=== PATIENT | female | born 1940 | race Caucasian/White ===

== ENCOUNTER 2020-08-14 10:06 | Outpatient (CLI) | payer MEDICARE, OTHER, SELFPAY ==
[2020-08-14 10:35] LABS: Basophils Percent Auto 0.7 % (0.2-1.2); Eosinophils Absolute Auto 0.2 K/mm3 (0-0.3); Eosinophils Percent Auto 3.5 % (0-4.4); Hematocrit 36.2 % (37.0-47.0); Lymphocytes Absolute Auto 1.53 K/mm3 (0.9-3.2); Lymphocytes Percent Auto 36.1 % (18.3-44.2); Mean Corpuscular HGB Conc 33.1 g/dl (32-36); Mean Corpuscular Hemoglobin 30.4 pg (26-34); Mean Corpuscular Volume 91.6 fl (80-100); Mean Platelet Volume 8.5 fl (7.4-10.4); Monocytes Absolute Auto 0.4 K/mm3 (0.1-0.6); Monocytes Percent Auto 8.7 % (2.6-8.5); Neutrophils Absolute Auto 2.2 K/mm3 (1.3-6.7); Platelet Count Result 160 k/mm3 (150-375); Red Blood Count 3.95 M/mm3 (4.2-5.4); Red Cell Distribution Width 12.3 % (11.5-14.5); White Blood Count 4.2 K/mm3 (4.5-10.0)
[2020-08-14 10:48] LABS: Albumin Level 4.4 g/dL (3.5-5.1); Alkaline Phosphatase 105 U/L (38-126); Anion Gap 5 mmol/L (8-16); Aspartate Amino Transferase 30 U/L (14-36); Bilirubin,Total 0.4 mg/dL (0.2-1.3); Blood Urea Nitrogen 17 mg/dL (7-17); Calcium 9.4 mg/dL (8.4-10.2); Carbon Dioxide 29 mmol/L (22-30); Chloride 105 mmol/L (98-107); Cholesterol 183 mg/dL (0-200); Estimated Glomerular Filt Rate > 60; Glucose 96 mg/dL (65-105); HDL Direct 50 mg/dL; Potassium 4.4 mmol/L (3.4-5.0); Sodium 139 mmol/L (137-145); Triglycerides 101 mg/dL (<150)
[2020-08-14 10:59] LABS: LDL Cholesterol Direct 89 mg/dL
[2020-08-14 11:17] LABS: Thyroid Stimulating Hormone 0.994 uIU/mL (0.465-4.680)
[2020-08-14 11:23] LABS: Alanine Aminotransferase < 4 U/L (4-35)
[2020-08-17 09:16] LABS: Vitamin D 1,25 (OH)2 Total 36 pg/mL (18-72); Vitamin D2 1,25 (OH)2 36 pg/mL; Vitamin D3 1,25 (OH)2 <8 pg/mL
== END 2020-08-14 10:07 | disposition home or self-care (01) ==
PROVIDERS: PCP Family Medicine; Visit Provider Family Medicine
DX: E55.9 Vitamin D deficiency, unspecified (principal); I10 Essential (primary) hypertension; E78.2 Mixed hyperlipidemia; E03.9 Hypothyroidism, unspecified
CPT/HCPCS: 36415; 80053; 80061; 82652; 84443; 85025

== ENCOUNTER 2020-08-21 14:03 | Outpatient (CLI) | payer MEDICARE, OTHER, SELFPAY | END 2020-08-21 14:04 | disposition home or self-care (01) | LOC: ANHAUDIO 14:05 | PROVIDERS: PCP Family Medicine; Visit Provider Family Medicine | DX: H93.19 Tinnitus, unspecified ear (principal); H90.3 Sensorineural hearing loss, bilateral | CPT/HCPCS: 92557; 92567 ==

== ENCOUNTER 2021-08-31 09:35 | Outpatient (CLI) | payer MEDICARE, OTHER, SELFPAY ==
--- NOTE | ~2021-08-31 | CT_ITS ---
EXAMINATION: CT brain wo con DATE: 08/31/2021 09:59 INDICATION: Tremor, unspecified. TECHNIQUE: Computed tomography (CT) of the head was performed without intravenous contrast. The mA wa s adjusted according to patient size. Iterative reconstruction technique was employed. The dose-lengt h product was 605.33 mGy-cm. COMPARISON: Brain MRI 12/12/2014 FINDINGS: There are scattered areas of low attenuation in the cerebral white matter, which is within normal limits for the patient's age. There is no intracranial hemorrhage, acute infarction, or abnorm al intracranial mass lesion. The ventricles are normal in size. There is mild mucosal thickening in t he paranasal sinuses. The mastoid air cells are normal. The orbits are normal. IMPRESSION: 1. Normal aging brain. Reviewed, dictated and finalized at location A. IMPRESSION: 1. Normal aging brain.
== END 2021-08-31 09:36 | disposition home or self-care (01) ==
PROVIDERS: PCP Family Medicine; Visit Provider Nurse Practitioner Gerontology
DX: R25.1 Tremor, unspecified (principal)
CPT/HCPCS: 70450

== ENCOUNTER 2021-12-29 07:48 | Outpatient (CLI) | payer MEDICARE, OTHER, SELFPAY ==
--- NOTE | ~2021-12-29 | MM_ITS ---
EXAMINATION: MM screening gisela BI w dorothy HISTORY: Screening mammogram, family history of breast cancer in her mother. TECHNIQUE: Craniocaudal and mediolateral oblique 3-D tomosynthesis images were obtained and synthetic 2-D images were generated. CAD analysis was submitted and interpreted. COMPARISON: 11/01/2014 BREAST PARENCHYMAL COMPOSITION: There are scattered areas of fibroglandular density. FINDINGS: There is no suspicious mass, calcification, or architectural distortion to suggest malignan cy in either breast. There has been no suspicious interval change. IMPRESSION: 1. No mammographic evidence of malignancy. 2. Recommend routine screening mammography while the patient remains in good health. BI-RADS Category 1: Negative Reviewed, dictated and finalized at location A. IMPRESSION: 1. No mammographic evidence of malignancy. 2. Recommend routine screening mammography while the patient remains in good he alth. BI-RADS Category 1: Negative
[2021-12-29 09:46] LABS: Basophils Percent Auto 0.5 % (0.2-1.2); Eosinophils Absolute Auto 0.1 K/mm3 (0-0.3); Eosinophils Percent Auto 2.7 % (0-4.4); Hemoglobin 11.7 g/dL (12.0-15.0); Immature Granulocyte Absolute 0.02 K/mm3 (0.00-0.031); Immature Granulocyte Percent A 0.5 % (0-0.5); Lymphocytes Absolute Auto 1.22 K/mm3 (0.9-3.2); Lymphocytes Percent Auto 27.8 % (18.3-44.2); Mean Corpuscular HGB Conc 31.6 g/dl (32-36); Mean Corpuscular Hemoglobin 30.5 pg (26-34); Mean Corpuscular Volume 96.4 fl (80-100); Monocytes Absolute Auto 0.3 K/mm3 (0.1-0.6); Monocytes Percent Auto 7.5 % (2.6-8.5); Neutrophils Absolute Auto 2.7 K/mm3 (1.3-6.7); Platelet Count Result 164 k/mm3 (150-375); Red Blood Count 3.84 M/mm3 (4.2-5.4); Red Cell Distribution Width 12.9 % (11.5-14.5); White Blood Count 4.4 K/mm3 (4.5-10.0)
[2021-12-29 10:02] LABS: Alanine Aminotransferase 8 U/L (6-35); Albumin Level 4.6 g/dL (3.5-5.1); Alkaline Phosphatase 113 U/L (38-126); Anion Gap 9 mmol/L (8-16); Aspartate Amino Transferase 32 U/L (14-36); Bilirubin,Total 0.6 mg/dL (0.2-1.3); Blood Urea Nitrogen 19 mg/dL (7-17); Calcium 9.7 mg/dL (8.4-10.2); Carbon Dioxide 27 mmol/L (22-30); Chloride 104 mmol/L (98-107); Cholesterol 170 mg/dL (0-200); Estimated Glomerular Filt Rate > 60; Glucose 94 mg/dL (65-110); HDL Direct 46 mg/dL; Potassium 4.2 mmol/L (3.4-5.0); Sodium 140 mmol/L (137-145); Triglycerides 86 mg/dL (<150)
[2021-12-29 10:12] LABS: LDL Cholesterol Direct 79 mg/dL
[2021-12-30 05:53] LABS: Free T4 Free Thyroxine Reflex 1.37 ng/dL (0.78-2.19)
[2021-12-30 07:29] LABS: Total Triiodothyronine (T3) 1.36 NG/ML (0.97-1.69)
== END 2021-12-29 07:49 | disposition home or self-care (01) ==
PROVIDERS: PCP Family Medicine; Visit Provider Family Medicine
DX: M81.0 Age-related osteoporosis without current pathological fracture (principal); G20 Parkinson's disease; F51.04 Psychophysiologic insomnia; Z12.31 Encounter for screening mammogram for malignant neoplasm of breast; I10 Essential (primary) hypertension
CPT/HCPCS: 36415; 77063; 77067; 80053; 80061; 84439; 84443; 84480; 85025

== ENCOUNTER 2022-10-18 07:41 | Outpatient (CLI) | payer MEDICARE, OTHER, SELFPAY ==
[2022-10-18 08:16] LABS: Basophils Percent Auto 0.5 % (0.2-1.2); Eosinophils Absolute Auto 0.2 K/mm3 (0-0.3); Eosinophils Percent Auto 3.8 % (0-4.4); Immature Granulocyte Absolute 0.01 K/mm3 (0.00-0.031); Immature Granulocyte Percent A 0.2 % (0-0.5); Lymphocytes Absolute Auto 1.32 K/mm3 (0.9-3.2); Lymphocytes Percent Auto 31.7 % (18.3-44.2); Mean Corpuscular HGB Conc 32.4 g/dl (32-36); Mean Corpuscular Hemoglobin 31.2 pg (26-34); Mean Corpuscular Volume 96.1 fl (80-100); Mean Platelet Volume 8.8 fl (7.4-10.4); Monocytes Absolute Auto 0.3 K/mm3 (0.1-0.6); Monocytes Percent Auto 7.5 % (2.6-8.5); Neutrophils Absolute Auto 2.3 K/mm3 (1.3-6.7); Neutrophils Percent Auto 56.3 % (45.5-73.1); Platelet Count Result 165 k/mm3 (150-375); Red Blood Count 3.85 M/mm3 (4.2-5.4); Red Cell Distribution Width 12.7 % (11.5-14.5); White Blood Count 4.2 K/mm3 (4.5-10.0)
[2022-10-18 08:33] LABS: Alanine Aminotransferase 22 U/L (6-35); Albumin Level 4.5 g/dL (3.5-5.1); Alkaline Phosphatase 117 U/L (38-126); Anion Gap 7 mmol/L (8-16); Aspartate Amino Transferase 32 U/L (14-36); Bilirubin,Total 0.5 mg/dL (0.2-1.3); Blood Urea Nitrogen 18 mg/dL (7-17); Carbon Dioxide 26 mmol/L (22-30); Chloride 107 mmol/L (98-107); Cholesterol 171 mg/dL (0-200); Estimated Glomerular Filt Rate > 60; Glucose 94 mg/dL (65-110); HDL Direct 54 mg/dL; Potassium 4.2 mmol/L (3.4-5.0); Sodium 140 mmol/L (137-145); Triglycerides 76 mg/dL (<150)
[2022-10-18 08:44] LABS: LDL Cholesterol Direct 92 mg/dL
[2022-10-22 00:09] LABS: Vitamin D 1,25 (OH)2 Total 46 pg/mL (18-72); Vitamin D2 1,25 (OH)2 37 pg/mL; Vitamin D3 1,25 (OH)2 9 pg/mL
== END 2022-10-18 07:42 | disposition home or self-care (01) ==
PROVIDERS: PCP Family Medicine; Visit Provider Nurse Practitioner Gerontology
DX: E78.2 Mixed hyperlipidemia (principal); G20 Parkinson's disease; E55.9 Vitamin D deficiency, unspecified; I10 Essential (primary) hypertension
CPT/HCPCS: 36415; 80053; 80061; 82652; 85025

== ENCOUNTER 2024-02-20 11:49 | Outpatient (CLI) | payer MEDICARE, OTHER, SELFPAY ==
[2024-02-20 12:40] LABS: Basophils Percent Auto 0.7 % (0.2-1.2); Eosinophils Absolute Auto 0.1 K/mm3 (0-0.3); Hematocrit 38.5 % (37.0-47.0); Hemoglobin 12.2 g/dL (12.0-15.0); Immature Granulocyte Absolute 0.01 K/mm3 (0.00-0.031); Immature Granulocyte Percent A 0.2 % (0-0.5); Lymphocytes Absolute Auto 1.66 K/mm3 (0.9-3.2); Lymphocytes Percent Auto 30.1 % (18.3-44.2); Mean Corpuscular HGB Conc 31.7 g/dl (32-36); Mean Corpuscular Hemoglobin 30.3 pg (26-34); Mean Corpuscular Volume 95.8 fl (80-100); Mean Platelet Volume 8.9 fl (7.4-10.4); Monocytes Absolute Auto 0.3 K/mm3 (0.1-0.6); Monocytes Percent Auto 4.9 % (2.6-8.5); Neutrophils Absolute Auto 3.4 K/mm3 (1.3-6.7); Neutrophils Percent Auto 62.1 % (45.5-73.1); Platelet Count Result 182 k/mm3 (150-375); Red Blood Count 4.02 M/mm3 (4.2-5.4); White Blood Count 5.5 K/mm3 (4.5-10.0)
[2024-02-20 12:45] LABS: Albumin Level 4.6 g/dL (3.5-5.1); Alkaline Phosphatase 93 U/L (38-126); Anion Gap 9 mmol/L (4-12); Aspartate Amino Transferase 27 U/L (14-36); Bilirubin,Total 0.6 mg/dL (0.2-1.3); Blood Urea Nitrogen 21 mg/dL (7-17); Calcium 9.4 mg/dL (8.4-10.2); Carbon Dioxide 26 mmol/L (22-30); Chloride 105 mmol/L (98-107); Estimated Glomerular Filt Rate > 60; Glucose 94 mg/dL (65-110); Potassium 4.2 mmol/L (3.4-5.0); Sodium 140 mmol/L (137-145)
[2024-02-20 13:03] LABS: Alanine Aminotransferase < 6 U/L (6-35)
[2024-02-20 13:15] LABS: Thyroid Stimulating Hormone 0.556 uIU/mL (0.465-4.680); Total Triiodothyronine (T3) 1.12 NG/ML (0.97-1.69)
[2024-02-20 13:27] LABS: Free T4 Free Thyroxine 0.75 ng/mL (0.78-2.19)
== END 2024-02-20 11:50 | disposition home or self-care (01) ==
LOC: ANHLAB 11:56
PROVIDERS: PCP Family Medicine; Visit Provider Family Medicine
DX: E03.9 Hypothyroidism, unspecified (principal); I10 Essential (primary) hypertension
CPT/HCPCS: 36415; 80053; 84439; 84443; 84480; 85025

== ENCOUNTER 2024-05-23 12:24 | Outpatient (CLI) | payer MEDICARE, OTHER, SELFPAY ==
--- NOTE | ~2024-05-23 | XR_ITS ---
XR hip LT 2V w AP pelvis Ordering provider: Abby Pepper PA-C History: . M81.0 - Age-related osteoporosis without current patholog... . Comparison: None. FINDINGS: BONES: No acute fracture or dislocation. HIP JOINT SPACES: Mild to moderate bilateral hip osteoarthritic changes SACROILIAC JOINT SPACES/LUMBAR SPINE: The sacroiliac joint spaces shows mild sacroiliitis. Mild degen erative changes of the visualized lower lumbar spine. PUBIC SYMPHYSIS: Pubic symphysitis. SOFT TISSUES: Normal. IMPRESSION: No acute osseous abnormality pelvis and left hip. Reviewed, dictated and finalized at location A. 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
--- NOTE | ~2024-05-23 | XR_ITS ---
3 VIEWS LUMBAR SPINE Ordering provider: Abby Pepper PA-C History: . M81.0 - Age-related osteoporosis without current patholog... . Comparison: None. FINDINGS: VERTEBRAL BODIES:Loss of height of L2 which is most likely chronic. Otherwise, No visible fracture or subluxation. Degenerative changes of the spine. DISK SPACES: Narrowing of the disc L1-L2, L2-L3, L3-L4 and L4-L5. Facet joint disease at the level of L5-S1. SOFT TISSUES: Normal. Bilateral sacroiliacs. IMPRESSION: No acute osseous abnormality lumbar spine. loss of height in L2 suggestive of old compression fracture. Multilevel degenerative disc disease. Reviewed, dictated and finalized at location A. 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
== END 2024-05-23 12:25 | disposition home or self-care (01) ==
LOC: ANHIMG 12:26
PROVIDERS: PCP Family Medicine; Visit Provider Student in an Organized Health Care Education/Training Program
DX: M81.0 Age-related osteoporosis without current pathological fracture (principal); R29.6 Repeated falls; M51.369 Other intervertebral disc degeneration, lumbar region without mention of lumbar back pain or lower extremity pain
CPT/HCPCS: 72100; 73502

== ENCOUNTER 2024-08-07 10:20 | Outpatient (CLI) | payer MEDICARE, OTHER, SELFPAY ==
--- NOTE | ~2024-08-07 | MR_ITS ---
MRI of the lumbar spine Clinical History: Fracture Technique: Axial T2-weighted images, and sagittal T1-weighted, T2-weighted, and T2 fat-sat images wer e acquired. Findings: There is mild acute compression fracture at the inferior endplate region of L4, mild loss o f height, T1 hypointense fracture line, and mild marrow edema. There is chronic fracture deformity at the inferior endplate region of L2. There is 4 mm retrolisthesis of L2 over L3. There is 3 mm retrol isthesis of L4 over L5. L1-L2, there is moderate degenerative disc narrowing with mild disc bulge. There is moderate facet ar thropathy. No central canal stenosis. There is minimal bilateral neural foraminal narrowing. At L2-L3, there is mild disc bulge with moderate facet arthropathy. No sugar central canal stenosis. There is moderate bilateral neural foraminal narrowing. At L3-L4, there is advanced degenerative disc narrowing. There is mild disc bulge with moderate facet arthropathy. There is mild central canal stenosis. There is moderate bilateral neural foraminal narr owing. L4-L5, there is degenerative disc narrowing. There is disc bulge and severe facet arthropathy, result ing in severe spinal canal stenosis/thecal sac compression. There is severe bilateral neural foramina l compromise, left worse than right. At L5-S1, there is diffuse disc bulge and severe facet arthropathy, resulting in severe spinal canal stenosis/thecal sac compression. There is severe bilateral neural foraminal narrowing. Paravertebral soft tissues are unremarkable. Impression: Acute mild compression fracture deformity of L4, as detailed above. Chronic L2 compression fracture. Severe degenerative spondylosis throughout the lumbar spine, especially at L4-L5 and L5-S1, as detail ed above. 4 mm retrolisthesis of L2 over L3. 3 mm retrolisthesis of L4 over L5. Reviewed, dictated and finalized at location . Impression: Acute mild compression fracture deformity of L4, as detailed above. Chronic L2 compression fracture. Severe degenerative spondylosis throughout the lumbar spine, especially at L4-L 5 and L5-S1, as detailed above. 4 mm retrolisthesis of L2 over L3. 3 mm retrolisthesis of L4 over L5.
[2024-08-07 10:56] LABS: Alanine Aminotransferase 8 U/L (6-35); Albumin Level 4.6 g/dL (3.5-5.1); Alkaline Phosphatase 82 U/L (38-126); Anion Gap 10 mmol/L (4-12); Aspartate Amino Transferase 29 U/L (14-36); Bilirubin,Total 0.7 mg/dL (0.2-1.3); Blood Urea Nitrogen 21 mg/dL (7-17); Calcium 9.5 mg/dL (8.4-10.2); Carbon Dioxide 25 mmol/L (22-30); Chloride 104 mmol/L (98-107); Estimated Glomerular Filt Rate > 60; Glucose 98 mg/dL (65-110); Potassium 4.3 mmol/L (3.4-5.0); Sodium 139 mmol/L (137-145)
== END 2024-08-07 10:21 | disposition home or self-care (01) ==
PROVIDERS: PCP Family Medicine; Visit Provider Family Medicine
DX: S32.040A Wedge compression fracture of fourth lumbar vertebra, initial encounter for closed fracture (principal); S32.020A Wedge compression fracture of second lumbar vertebra, initial encounter for closed fracture; X58.XXXA Exposure to other specified factors, initial encounter; M47.816 Spondylosis without myelopathy or radiculopathy, lumbar region; M47.817 Spondylosis without myelopathy or radiculopathy, lumbosacral region; M43.16 Spondylolisthesis, lumbar region; I10 Essential (primary) hypertension
CPT/HCPCS: 36415; 72148; 80053

== ENCOUNTER 2024-11-06 14:22 | Outpatient (CLI) | payer MEDICARE, OTHER, SELFPAY ==
--- NOTE | ~2024-11-06 | DEXA_ITS ---
Bone Density Report Name: TOMY JUAN Age: 83 Sex: Female Ethnicity: White Date of : 1940 Indication: postmenopausal; screening for osteoporosis; height loss; prior fracture; Referring Provider: BARBARA NESS Study: Bone densitometry was performed. Exam Date: November 06, 2024 Accession number: [id number] Bone Density: Region BMD T-score Z-score Classification AP Spine(L1-L4) 0.771 -2.5 0.3 Osteoporosis Femoral Neck (Left) 0.581 -2.4 0.0 Osteopenia Total Hip (Left) 0.755 -1.5 0.7 Osteopenia Femoral Neck (Right) 0.584 -2.4 0.0 Osteopenia Total Hip (Right) 0.772 -1.4 0.8 Osteopenia Total Hip Mean 0.763 -1.5 0.8 Osteopenia World Health Organization criteria for BMD impression classify patients as: Normal (T-score at or above -1.0), Osteopenia (T-score between -1.0 and -2.5), or Osteoporosis (T-score at or below -2.5). 10-year Fracture Risk: FRAX not reported because: Some T-score for Spine Total or Hip Total or Femoral Neck at or below -2.5 Prior hip or vertebral fracture Clinical Information Provided by Patient: Have had a previous hip or vertebral fracture Has had a low trauma fracture Patient maximum height was 63.0 Menopause Age: 57 No regular weight bearing exercise Drinks caffeinated beverages Onset of menses at age 14 Number of children 4 Impression: The patient has established osteoporosis, based on the Total Spine T-score and the existence of a prior fracture. The patient has risk factors, including: previous fracture. Discussion: HIGH RISK OF FRACTURE. BONE DENSITY IS UNDESIRABLY LOW AT ONE OR MORE SKELETAL SITES, CONSISTENT WITH POSTMENOPAUSAL OSTEOPOROSIS. This patient's lowest T-score, in a patient who has previously fractured, meets the World Health Organization's (WHO) criteria for severe osteoporosis. In untreated patients, the risk of osteoporotic fracture increases approximately two-fold for each 1.0 SD decrease in T-score. Low bone density is not the only risk factor for fracture; also consider factors such as patient's age, frailty or poor health, risk of falling, risk of injury, previous osteoporotic fracture, family history of osteoporosis, cigarette smoking, low body weight, etc. Not everyone with low bone mineral density has osteoporosis; osteomalacia and other metabolic bone disorders should also be considered. Patients who have osteoporosis should be evaluated for specific diseases and conditions (secondary causes) that may cause or contribute to bone loss. The [place] [employer] of Clinical Endocrinologists (AACE) and National Osteoporosis Foundation (NOF) recommend pharmacologic intervention for all postmenopausal women with a previous hip or vertebral fracture and a T-score in this range. The patient should follow a healthful lifestyle (good nutrition with adequate calcium and vitamin D, and appropriate weight-bearing exercise). Follow-Up: Consider a repeat BMD and Vertebral Fracture Assessment (VFA) exam in 2 years or sooner if medically necessary, to reassess this patient's status. Reported by: FERMÍN on 11/06/2024 3:09:00 PM. Reviewed, dictated and finalized at location A.
--- OUTSIDE RECORDS SUMMARY | 2024-11-06 16:21 | XMS_ITS | Continuity of Care Document ---
Author Name [facility] Organization [facility] Care Team Providers Care Stage Technician Name Role Phone [facility] Unavailable Unavailable Problems Combined list of problems from Department of Defense and Veterans Affairs facilities. It does not include entries that were removed or entered in error. Problem Status Onset Date Problem Type Date of Resolution Comments Source Need For Prophylactic Antibiotics Inactive Condition DoD SENSORINEURAL HEARING LOSS Active Condition DoD NORMAL ROUTINE HISTORY AND PHYSICAL ADULT (18-65) Active Condition See paper work in records. follow up after labs DoD ATYPICAL CHEST PAIN Active Condition DoD OSTEOPOROSIS Active Condition DoD visit for: issue repeat prescription for medication Inactive Condition DoD diffuse joint pains (arthralgias) Active Condition DoD BRONCHITIS Active Condition DoD joint pain, localized in the shoulder Active Condition [facility] Occupational Therapy Inactive Condition DoD flatus worsened by dairy products Inactive Condition Will start pt on trial of prevacid and pt is to try Lactase which can be found at [employer] stores - to follow-up if not getting better in 2-3 weeks. DoD HYPERTENSION (SYSTEMIC) Active Condition DoD Vaccines Prophylactic Need Against Influenza Active Condition DoD Need For Vaccination Pneumococcal Inactive Condition DoD Vaccines Prophylactic Need Against Td Inactive Condition DoD visit for: refer patient without exam or treatment Inactive Condition DoD Imaging Studies Inactive Condition [facility] visit for: screening exam for malignant neoplasm cervix Inactive Condition DoD NORMAL ROUTINE HISTORY AND PHYSICAL Inactive Condition [facility] Pelvic Exam (Internal) Active Condition DoD ACUTE BRONCHITIS Inactive Condition [facility] SINUSITIS Active Condition ON TOP OF UNDERLYING ALLERGIES. WILL TREAT WITH ANTIBIOTIC COURSE WELL ALLERGY TREATMENT BELOW. DoD ALLERGIC RHINITIS Active Condition ABOVE FOR INFECTION. STOP AFRIN. MAY USE SUDAFED NEEDED. DoD Medications Combined list of outpatient medications from Department of Defense and Veterans Affairs facilities.Medications provided include 1) outpatient medications from the last 15 months, and 2) patient-reported medications. Medication Details Route Status Patient Instructions Prescription Expires Prescription Number Last Dispense Date Ordering Provider Order Date Order Qty Source alendronate 70 mg tablet = 1 tab(s), Oral, every week, # 12 EA, 2 total refill(s ), Hard Stop Oral (given by mouth) Ordered 04/26/2025 5 2024 12.0 Ambulat ory Pharmac y alendronate 70 mg tablet See Instruct ions, Oral, # 12 EA, 2 total refill(s ), Hard Stop Oral (given by mouth) Complet ed 10/28/2023 3 2023 12.0 Ambulat ory Pharmac y alendronate 70 mg tablet See Instruct ions, Oral, # 12 EA, 2 total refill(s ), Hard Stop Oral (given by mouth) Discont inued 04/29/2024 4 2023 12.0 Ambulat ory Pharmac y amLODIPine- benazepril 10 mg-20 mg capsule See dose instruct ions in comments , # 90 EA, 1 total refill(s ), Acute Complet ed 07/28/2023 3 2023 90.0 Ambulat ory Pharmac y amLODIPine- benazepril 10 mg-20 mg capsule See Instruct ions, 0, 0, # 90 EA, 1 total refill(s ), Hard Stop Complet ed 10/28/2023 3 2023 90.0 Ambulat ory Pharmac y amlodipine- benazepril 10 mg-20 mg capsule = 1 cap(s), Oral, Daily, # 90 EA, 1 total refill(s ), Soft Stop Oral (given by mouth) Ordered 5 2024 90.0 Ambulat ory Pharmac y amlodipine- benazepril 10 mg-20 mg capsule = 1 cap(s), Oral, Daily, # 90 EA, 1 total refill(s ), Hard Stop Oral (given by mouth) Ordered 01/08/2025 4 2023 90.0 Ambulat ory Pharmac y amLODIPine- benazepril 10 mg-20 mg capsule = 1 cap(s), Oral, Daily, # 90 EA, 1 total refill(s ), Hard Stop Oral (given by mouth) Complet ed 07/24/2024 4 2024 90.0 Ambulat ory Pharmac y aspirin EC 81 mg tablet See Instruct ions, Oral, # 90 EA, 4 total refill(s ), Hard Stop Oral (given by mouth) Complet ed 10/28/2023 3 2023 90.0 Ambulat ory Pharmac y aspirin EC 81 mg tablet 81 mg, Oral, Daily, # 90 EA, 3 total refill(s ), Hard Stop Oral (given by mouth) Complet ed 01/13/2024 4 2023 90.0 Ambulat ory Pharmac y aspirin EC 81 mg tablet = 1 tab(s), Oral, Daily, # 90 EA, 3 total refill(s ), Hard Stop Oral (given by mouth) Ordered 02/13/2025 5 2024 90.0 Ambulat ory Pharmac y benztropine 1 mg tablet 1 mg, Oral, TID, # 90 EA, 4 total refill(s ), Hard Stop Oral (given by mouth) Complet ed 10/28/2023 3 2023 90.0 Ambulat ory Pharmac y benztropine 1 mg tablet 1 mg, Oral, TID, # 90 EA, 4 total refill(s ), Hard Stop Oral (given by mouth) Complet ed 11/09/2023 3 2023 90.0 Ambulat ory Pharmac y benztropine 1 mg tablet = 1 tab(s), Oral, TID, # 270 EA, 3 total refill(s ), Hard Stop Oral (given by mouth) Ordered 01/08/2025 5 2024 270.0 Ambulat ory Pharmac y carbidopa-l evodopa 25 mg-100 mg oral tablet TAKE ONE TABLET THREE TIMES DAILY, # 270 EA, 2 total refill(s ), Acute Complet ed 08/18/2023 3 2023 270.0 Ambulat ory Pharmac y carbidopa-l evodopa 25 mg-100 mg tablet See Instruct ions, Oral, TID, # 270 EA, 2 total refill(s ), Hard Stop Oral (given by mouth) Complet ed 10/28/2023 4 2023 270.0 Ambulat ory Pharmac y carbidopa-l evodopa 25 mg-100 mg tablet = 1 tab(s), Oral, TID, # 270 EA, 2 total refill(s ), Hard Stop Oral (given by mouth) Complet ed 11/09/2023 3 2023 270.0 Ambulat ory Pharmac y carbidopa-l evodopa 25 mg-100 mg tablet = 1 tab(s), Oral, TID, # 270 EA, 2 total refill(s ), Soft Stop Oral (given by mouth) Ordered 5 2024 270.0 Ambulat ory Pharmac y carbidopa-l evodopa 25 mg-100 mg tablet = 1 tab(s), Oral, TID, # 270 EA, 2 total refill(s ), Hard Stop Oral (given by mouth) Ordered 07/05/2025 5 2024 270.0 Ambulat ory Pharmac y carbidopa-l evodopa 25 mg-100 mg tablet See Instruct ions, # 270 EA, 2 total refill(s ), Hard Stop Discont inued 07/11/2024 4 2024 270.0 Ambulat ory Pharmac y cyclobenzap rine 5 mg tablet See Instruct ions, # 60 EA, 0 total refill(s ), Hard Stop Complet ed 06/21/2024 5 2024 60.0 Ambulat ory Pharmac y cyclobenzap rine 5 mg tablet See Instruct ions, Oral, # 60 EA, 0 total refill(s ), Hard Stop Oral (given by mouth) Complet ed 06/13/2024 5 2024 60.0 Ambulat ory Pharmac y Ergocalcife rol (Vitamin D Eq.) Capsule Conventiona l 1.25 mg Oral 10/03/2024 [id number] 4 2023 13 [facility] David TAYLOR [place] ergocalcife rol 1.25 mg (50,000 units) capsule See Instruct ions, Oral, # 12 EA, 3 total refill(s ), Hard Stop Oral (given by mouth) Complet ed 10/28/2023 4 2023 12.0 Ambulat ory Pharmac y ergocalcife rol 1.25 mg (50,000 units) capsule = 1 cap(s), Oral, every week, # 7 EA, 7 total refill(s ), Soft Stop Oral (given by mouth) Ordered 5 2024 7.0 Ambulat ory Pharmac y ergocalcife rol 1.25 mg (50,000 units) capsule = 1 cap(s), Oral, # 12 EA, 3 total refill(s ), Hard Stop Oral (given by mouth) Discont inued 07/18/2024 4 2024 12.0 Ambulat ory Pharmac y Metoprolol (Toprol XL Eq.) Tablet 50 mg Oral Be careful if taking OTCs.Rodrigue e with food/mil k.Take or use exactly as directed .May impair driving. May cause drowsine ss/dizzi ness. 09/10/2024 [id number] 4 2023 180 [facility] David TAYLOR [place] metoprolol tartrate 50 mg tablet 50 mg, Oral, every 12 hr, # 180 EA, 3 total refill(s ), Hard Stop Oral (given by mouth) Complet ed 09/10/2024 4 2024 180.0 Ambulat ory Pharmac y metoprolol tartrate 50 mg tablet See Instruct ions, Oral, # 180 EA, 3 total refill(s ), Hard Stop Oral (given by mouth) Discont inued 09/15/2023 3 2023 180.0 Ambulat ory Pharmac y metoprolol tartrate 50 mg tablet See Instruct ions, # 180 EA, 3 total refill(s ), Acute Complet ed 08/21/2023 3 2023 180.0 Ambulat ory Pharmac y metoprolol tartrate 50 mg tablet = 1 tab(s), Oral, every 12 hr, # 180 EA, 3 total refill(s ), Hard Stop Oral (given by mouth) Ordered 01/08/2025 5 2024 180.0 Ambulat ory Pharmac y predniSONE 10 mg tablet See Instruct ions, # 30 EA, 0 total refill(s ), Hard Stop Complet ed 07/19/2024 5 2024 30.0 Ambulat ory Pharmac y Allergies, Adverse Reactions, Alerts Combined list of allergies from Department of Defense and Veterans Affairs facilities. It does not include entries that were removed or entered in error. Substance Category Reaction Severity Reaction type Status Date Reported Comments Source Cats Drug allergy itchy eye Moderate Active Ambulatory Pharmacy Gra Drug allergy sneezing/r espiratory issues Moderate Active Ambulatory Pharmacy OTHER Drug allergy (disorder) Unknown active [address] [place] [address] [employer] [facility] OTHER Drug allergy (disorder) active [address] [place] [address] David SCHUMACHERB [facility] [place] sulfa drugs Drug allergy Unknown Unknown Active 5 Reaction( s): Unknown Ambulatory Pharmacy Sulfa-Drugs Drug allergy (disorder) Unknown active [address] [place] [address] David SCHUMACHERB [facility] [place] SULFA-DRUGS Drug allergy (disorder) active [address] [place], [place] [address]B [facility] [place] Immunizations Combined list of available immunizations from the Department of Defense and Veterans Affairs facilities. 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 Comments Source COVID-19, mRNA, LNP-S, PF, 30 mcg/0.3 mL dose, kathy-sucrose 2021 [facility] [place] [facility] Not Given COVID-19, mRNA, LNP-S, PF, 30 mcg/0.3 mL dose, kathy-sucr ose DoD Influenza vaccine, quadrivalent, adjuvanted 2020 CHRISTEL, () Not Given Influenza vaccine, quadrival ent, adjuvante d DoD COVID-19, mRNA, LNP-S, PF, 30 mcg/0.3 mL dose 2020 [facility] [place] ([facility]) Not Given COVID-19, mRNA, LNP-S, PF, 30 mcg/0.3 mL dose DoD Tdap 2020 ALUL, () Not Given Tdap DoD influenza, high-dose, quadrivalent 2019 ALUL, () Not Given influenza , high-dose , quadrival ent DoD Influenza, trivlanent, adjuvanted, pf 2018 168 [employer] complet ed Influenza , trivlanen t, adjuvante d, pf 04/05/19 Given Ambulat ory Pharmac y Pneumococcal conjugate PCV 13 2018 ALUL, () Not Given Pneumococ deisy conjugate PCV 13 DoD Influenza, trivlanent, adjuvanted, pf 2017 168 [employer] complet ed Influenza , trivlanen t, adjuvante d, pf 03/06/18 Given Ambulat ory Pharmac y zoster vaccine live 2016 121 [employer] complet ed zoster vaccine live 05/05/17 Given Ambulat ory Pharmac y influenza, injectable, quadrivalent 2014 zzLef t Arm [id number] 158 [facility] influenza , injectabl e, quadrival ent 03/16/15 Given Ambulat ory Pharmac y influenza, injectable, quadrivalent, contains preservative 10 2014 Unknown, Provider [id number] 158 [facility] ([facility]) complet ed influenza , injectabl e, quadrival ent, contains preservat niranjan DoD influenza, seasonal, injectable-pf 2013 zzGarima Arm [id number] 140 Novartis [employer] complet ed influenza , seasonal, injectabl e-pf 02/24/14 Given Ambulat ory Pharmac y Influenza, seasonal, injectable, preservative free 9 2013 Unknown, Provider [id number] 140 Novartis Pharmaceutica l [place]. (NOV) complet ed Influenza , seasonal, injectabl e, preservat niranjan free DoD influenza, seasonal, injectable 2011 TRANSCR IBED 141 complet ed influenza , seasonal, injectabl e 02/28/12 Given Ambulat ory Pharmac y Influenza, seasonal, injectable 1 2011 Unknown, Provider 141 Transcribed (TRS) complet ed Influenza , seasonal, injectabl e DoD influenza, seasonal, injectable-pf 2010 zzLef t Arm [id number] 140 sanofi pasteur complet ed influenza , seasonal, injectabl e-pf 02/04/11 Given Ambulat ory Pharmac y Influenza, seasonal, injectable, preservative free 1 2010 Unknown, Provider [id number] 140 Sanofi Pasteur ([facility]) complet ed Influenza , seasonal, injectabl e, preservat niranjan free DoD influenza virus vaccine,split 2009 zzLef t Arm [id number] 15 CSL Behring complet ed influenza virus vaccine,s plit 03/18/10 Given Ambulat ory Pharmac y influenza virus vaccine, split virus (incl. purified surface antigen)-reti red CODE 1 2009 Unknown, Provider [id number] 15 [employer] (CSL) complet ed influenza virus vaccine, split virus (incl. purified surface antigen)- retired CODE DoD Novel influenza-H1N 1-09, injectable 2009 zzLef t Arm [id number] 1 127 Novartis Pharmaceutica ls complet ed Novel influenza -Q1V7-01, injectabl e 05/29/09 Given Ambulat ory Pharmac y Novel influenza-H1N 1-09, injectable 1 2009 Unknown, Provider [id number] 1 127 Novartis Pharmaceutica l [place]lin. (NOV) complet ed Novel influenza -H4S7-28, injectabl e DoD influenza virus vaccine,split 2008 zzL t Arm [id number] 15 sanofi pasteur complet ed influenza virus vaccine,s plit 03/20/09 Given Ambulat ory Pharmac y influenza virus vaccine, split virus (incl. purified surface antigen)-reti red CODE 1 2008 Unknown, Provider [id number] 15 Sanofi Pasteur ([facility]) complet ed influenza virus vaccine, split virus (incl. purified surface antigen)- retired CODE DoD influenza virus vaccine,split 2007 zzLef t Arm [id number] 15 sanofi pasteur complet ed influenza virus vaccine,s plit 04/29/08 Given Ambulat ory Pharmac y influenza virus vaccine, split virus (incl. purified surface antigen)-reti red CODE 1 2007 Unknown, Provider [id number] 15 Sanofi Pasteur ([facility]) complet ed influenza virus vaccine, split virus (incl. purified surface antigen)- retired CODE DoD influenza virus vaccine,split 2006 [facility] [id number] 15 sanofi pasteur complet ed influenza virus vaccine,s plit 05/18/07 Given Ambulat ory Pharmac y influenza virus vaccine, split virus (incl. purified surface antigen)-reti red CODE 1 2006 Unknown, Provider [id number] 15 Sanofi Pasteur ([facility]) complet ed influenza virus vaccine, split virus (incl. purified surface antigen)- retired CODE DoD influenza virus vaccine,split 2005 zzLef t Arm [id number] 15 GlaxoSmith[employer] complet ed influenza virus vaccine,s plit 05/12/06 Given Ambulat ory Pharmac y influenza virus vaccine, split virus (incl. purified surface antigen)-reti red CODE 1 2005 Unknown, Provider [id number] 15 [facility] ([facility]) complet ed influenza virus vaccine, split virus (incl. purified surface antigen)- retired CODE DoD pneumococcal polysaccharid e, 23 valent 2004 zzL t Arm [id number] 33 Merck & Company Inc complet ed pneumococ deisy polysacch aride, 23 valent 04/28/05 Given Ambulat ory Pharmac y influenza virus vaccine,split 2004 [facility] [id number] 15 sanofi pasteur complet ed influenza virus vaccine,s plit 04/28/05 Given Ambulat ory Pharmac y influenza virus vaccine, split virus (incl. purified surface antigen)-reti red CODE 1 2004 Unknown, Provider [id number] 15 Sanofi Pasteur ([facility]) complet ed influenza virus vaccine, split virus (incl. purified surface antigen)- retired CODE DoD pneumococcal polysaccharid e vaccine, 23 valent 1 2004 Unknown, Provider [id number] 33 Merck (MSD) complet ed pneumococ deisy polysacch aride vaccine, 23 valent DoD tetanus-dipht h toxoids (Td) adult[facility] [id number] 09 sanofi pasteur complet ed tetanus-d iphth toxoids (Td) adult/ado l 01/12/05 Given Ambulat ory Pharmac y tetanus and diphtheria toxoids, adsorbed, preservative free, for adult use (2 Lf of tetanus toxoid and 2 Lf of diphtheria toxoid) 1 2004 Unknown, Provider [id number] 09 Sanofi Pasteur ([facility]) complet ed tetanus and diphtheri a toxoids, adsorbed, preservat niranjan free, for adult use (2 Lf of tetanus toxoid and 2 Lf of diphtheri a toxoid) DoD pneumococcal polysaccharid e, 23 valent 1999 [id number] SPHARES complet ed pneumococ deisy polysacch aride, 23 valent 01/10/00 Given Ambulat ory Pharmac y pneumococcal 7-valent vaccine 1999 zzLef t Arm 100 complet ed pneumococ deisy 7-valent vaccine 01/10/00 Given Ambulat ory Pharmac y pneumococcal polysaccharid e vaccine, 23 valent 1 1999 Unknown, Provider [id number] Danyelle (LED) complet ed pneumococ deisy polysacch aride vaccine, 23 valent DoD pneumococcal conjugate vaccine, 7 valent 1 1999 Unknown, Provider 100 () complet ed pneumococ deisy conjugate vaccine, 7 valent DoD hepatitis A adult vaccine 1997 zzLef t Arm 52 complet ed hepatitis A adult vaccine 02/26/98 Given Ambulat ory Pharmac y hepatitis A vaccine, adult dosage 2 1997 Unknown, Provider 52 () complet ed hepatitis A vaccine, adult dosage DoD hepatitis B adult vaccine 1996 zzLef t Arm 43 complet ed hepatitis B adult vaccine 10/10/96 Given Ambulat ory Pharmac y hepatitis B vaccine, adult dosage 3 1996 Unknown, Provider 43 () complet ed hepatitis B vaccine, adult dosage DoD hepatitis A adult vaccine 1996 zzLef t Arm 52 complet ed hepatitis A adult vaccine 05/31/96 Given Ambulat ory Pharmac y hepatitis A vaccine, adult dosage 1 1996 Unknown, Provider 52 () complet ed hepatitis A vaccine, adult dosage DoD tetanus-dipht h toxoids (Td) adult/adol 1990 zzLef t Arm 09 complet ed tetanus-d iphth toxoids (Td) adult/ado l 10/20/90 Given Ambulat ory Pharmac y tetanus and diphtheria toxoids, adsorbed, preservative free, for adult use (2 Lf of tetanus toxoid and 2 Lf of diphtheria toxoid) 1 1990 Unknown, Provider 09 () complet ed tetanus and diphtheri a toxoids, adsorbed, preservat niranjan free, for adult use (2 Lf of tetanus toxoid and 2 Lf of diphtheri a toxoid) DoD measles/mumps /rubella virus vaccine 1986 zzLef t Arm 03 complet ed measles/m umps/rube lla virus vaccine 01/20/87 Given Ambulat ory Pharmac y measles, mumps and rubella virus vaccine 1 1986 Unknown, Provider 03 () complet ed measles, mumps and rubella virus vaccine DoD poliovirus vaccine, live, oral 1967 zzLef t Arm 02 complet ed polioviru s vaccine, live, oral 11/20/67 Given Ambulat ory Pharmac y trivalent poliovirus vaccine, live, oral 1 1967 Unknown, Provider 02 () complet ed trivalent polioviru s vaccine, live, oral DoD Encounters Combined list of: 1) Encounters from Department of Veterans Affairs facilities going backup to the last 18 months, not all VA inpatient encounters are included; 2) Encounters from the Department of Defense facilities going backup to 280 months. Location Location Details Encounter Type Encounter Number Reason For Visit Attending Provider ADM Date DC Date Status Disposition Source [address] [place] [address] David TAYLOR [facility] Non-GME FHI1) OUTPATIENT [id number] Cold, fever for weeks. AMY DEMPSEY 09/01 Released w/o Limitations [address] [place] [address] David TAYLOR [facility] [place]F amily Practic e Non-GME FHI1) [address] [place] [address] David Apolonia [facility] [place]) DIRECT TO [facility] FROM OTHER THAN ER OR [facility] [id number] 02/22 DISCHARGED HOME [address] [place] [address] David [facility]) [address] [place] [address] David TAYLOR [facility] Non-GME FHI2) OUTPATIENT [id number] F/U FOR PNEUMIA DOC MINOR 04/23 Released w/o Limitations [address] [place] [address] David TAYLOR [facility] [place]F amily Practic e Non-GME FHI2) [address] [place] [address] David TAYLOR [facility] Non-GME FHI2) OUTPATIENT [id number] Annual Pap need Referra l for Mammogr am DOC MINOR 09/03 Released w/o Limitations [address] [place] [address] David TAYLOR [facility]F amily Practic e Non-GME FHI2) [address] [place] [address] David TAYLOR [facility] [facility] Non-GME FHI1) TELE CONSULT [id number] Radiolo gy results DOC MINOR 09/[address] [place] [address] David TAYLOR [facility] [facility]F amily Practic e Non-GME FHI1) [address] [place] [address] David B [facility] jayson Practice Non-GME FHI2) TELE CONSULT [id number] Rx RefFREDO Gracia 12/[address] [place] [address])(F amily Practic e Non-GME FHI2) [address] [place] [address])([facility]ayson Practice Non-GME FHI1) OUTPATIENT [id number] immuniz ations- work physica l- unsure of what is needed KELLY KIM 01/12 Released w/o Limitations [address] [place] [address] David B [facility]F amily Practic e Non-GME FHI1) [address] [place], [place] [address]B [facility] Practice Non-GME FHI2) OUTPATIENT [id number] hyperte nsion DOC MINOR 01/19 Released w/o Limitations [address] [place] [address])(F amily Practic e Non-GME FHI2) [address] [place] [address])([facility] Practice Non-GME FHI1) TELE CONSULT [id number] referal for gastro FREDO MYERS 02/[address] [place] [address] David [facility])(F amily Practic e Non-GME FHI1) [address] [place] [address])([facility]ayson Practice Non-GME FHI2) TELE CONSULT [id number] med FREDO Sorto 04/[address] [place] [address] David [facility])(F amily Practic e Non-GME FHI2) [address] [place] [address])([facility] Practice Non-GME FHI2) OUTPATIENT [id number] medicin e follow up DOC MINOR 04/28 Released w/o Limitations [address] [place], [place] [address]B [facility]F amily Practic e Non-GME FHI2) [address] [place] [address])([facility] jayson Practice Non-GME FHI1) OUTPATIENT [id number] Flu shot and ANA Guerin 04/28 Released w/o Limitations [address] [place] [address])(F amily Practic e Non-GME FHI1) [address] [place] [address] David SCHUMACHERB [place] Non-GME FHI2) OUTPATIENT [id number] fol bl pressur e DOC MINOR 06/28 Released w/o Limitations [address] [place] [address] David WINSOMEB [place]F amily Practic e Non-GME FHI2) [address] [place] [address] David WINSOMEB [place] OUTPATIENT [id number] medicin e follow up DOC MINOR 08/22 Released w/o Limitations [address] [place] [address] David WINSOMEB [facility]F amily Practic e Non-GME FHI2) [address] [place] [address] David B [facility]) TELE CONSULT [id number] B/P med refill PCM-Mon YESSICA Blake 10/[address] [place] [address] David WINSOMEB [facility]F amily Practic e Non-GME FHI2) [address] [place] [address] David WINSOMEB [facility] jayson Practice Non-GME FHI2) OUTPATIENT [id number] F/U Medicat ion Review DOC MINOR 01/06 Released w/o Limitations [facility] David WINSOMEB [facility]F amily Practic e Non-GME FHI2) [address] [place] [address] David WINSOMEB [facility]2) TELE CONSULT [id number] Provide r: MORE Eli 01/[address] [place] [address] David B [facility]F amily Practic e Non-GME FHI2) [address] [place] [address] David B [facility]Occ upational Therapy) OUTPATIENT [id number] joint pain, localiz ed in the shoulde r DIANA BOSTON 01/09 Released w/o Limitations [address] [place] [address] David WINSOMEB [facility] [place]O ccupati onal Therapy ) [address] [place] [address] David B [facility] [place]Occ upational Therapy) OUTPATIENT [id number] SVETLANA FOY 01/11 Released w/o Limitations [address] [place] [address] David B [place]al Therapy [place] [employer] [place]Occ upational Therapy) OUTPATIENT [id number] ALFREDO GUANACO Sean 01/13 Released w/o Limitations [employer] ([facility]O ccupati onal Therapy ) [employer] ([facility]Occ upational Therapy) OUTPATIENT [id number] ALFREDO GUANACO Sean 01/17 Released w/o Limitations [employer] ([facility]O ccupati onal Therapy ) [employer] ([facility]Occ upational Therapy) OUTPATIENT [id number] FUENTES GUANACO Sean 01/19 Released w/o Limitations [employer] ([facility]O ccupati onal Therapy ) [employer] ([facility]Occ upational Therapy) OUTPATIENT [id number] DIANA BOSTON 01/26 Released w/o Limitations [employer] ([facility]O ccupati onal Therapy ) [employer] ([facility]Occ upational Therapy) OUTPATIENT [id number] SVETLNAA FOY 02/06 Released w/o Limitations [employer] ([facility]O ccupati onal Therapy ) [employer] ([facility]Occ upational Therapy) OUTPATIENT [id number] SVETLANA FOY 02/10 Released w/o Limitations [employer] ([facility]O ccupati onal Therapy ) [employer] ([facility]Occ upational Therapy) OUTPATIENT [id number] MICHAEL CARRERO 02/13 Released w/o Limitations [employer] ([facility]O ccupati onal Therapy ) [employer] ([facility]Occ upational Therapy) OUTPATIENT [id number] SVETLANA FOY 02/17 Released w/o Limitations [employer] ([facility]O ccupati onal Therapy ) [employer] ([facility]Occ upational Therapy) OUTPATIENT [id number] SVETLANA FOY 02/20 Released w/o Limitations [employer] ([facility]O ccupati onal Therapy ) [address] [place] [address] [employer] ([facility]Occ upational Therapy) OUTPATIENT [id number] SVETLANA FOY R 02/24 Released w/o Limitations [address] [place] [address] David SCHUMACHER[employer] ([facility]O ccupati onal Therapy ) [address] [place] [address] [employer] ([facility]Occ upational Therapy) OUTPATIENT [id number] DIANA BOSTON 03/02 Released w/o Limitations [address] [place] [address] David SCHUMACH[employer] ([facility]O ccupati onal Therapy ) [address] [place] [address] David [employer]UM[place] ([facility]Occ upational Therapy) OUTPATIENT [id number] SVETLANA FOY R 03/13 Released w/o Limitations [address] [place] [address] David SCHUMACHERB ([facility]O ccupati onal Therapy ) [address] [place] [address] David SCHUMACHERB ([facility]Fam jayson Practice Non-GME FHI2) OUTPATIENT [id number] sinus infecti on DOC MINOR E 03/22 Released w/o Limitations [address] [place] [address] David SCHUMACHERB [facility] [place]F amily Practic e Non-GME FHI2) [address] [place] [address] [employer] [facility] [place]Fam jayson Practice Non-GME FHI1) TELE CONSULT [id number] med SHEILA Suazo 07/[address] [place] [address] David SCHUMACHERB [facility] [place]F amily Practic e Non-GME FHI1) [address] [place] [address] [employer] ([facility]Fam jayson Practice Non-GME FHI2) TELE CONSULT [id number] Rx Renewal , for Today? JULIUS SONG 11/[address] [place] [address] [employer] [facility] [place]F amily Practic e Non-GME FHI2) [address] [place] [address] [employer] ([facility]Fam jayson Practice Non-GME FHI2) OUTPATIENT [id number] follow- up HTN DOC MINOR 11/21 Released w/o Limitations [address] [place] [address] [employer] ([facility]F amily Practic e Non-GME FHI2) [address] [place] [address] [employer] (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 MARTÍN Valenzuela 12/31 Released w/o Limitations [address] [place] [address])(F amily Practic e Non-GME FHI2) [address] [place] [address])(Aud iology) OUTPATIENT [id number] NORMAL ROUTINE HISTORY AND PHYSICA L ADULT (18-65) ROBERTLOPEZ RUTLEDGE Brandy 01/08 Released w/o Limitations [address] [place] [address])(A udiolog y) [address] [place] [address])(War rior Op Med Cln Tm A Ad) TELE CONSULT [id number] Notes Entered by: JOSÉ MIGUEL GUTIERREZ 29 Jun [id number] ------- ------- ------- ------- -- Possibl e exposur e to meningo coccus JOSÉ MIGUEL GUTIERREZ 06/[address] [place] [address])(W arrior Op Med Cln Tm A Ad) Procedures Combined list of: 1) Procedures from Department of Veterans Affairs facilities going back up to thelast 18 months, not all VA non-surgical procedures are included; 2) All procedures from the Department of Defense facilities. Procedure Procedure Type Code Date Perfomer Comments Sourc e No data available for this section Ambulato ry Pharmacy SELF-CARE/HOME MANAGMENT TRAIN (EG,ACT OF DAILY LIVING (ADL) &COMPENSAT TRAIN,MEAL PREPARATION,SAFETY PROCS,AND INSTRUCT IN USE OF ASST TECHNOLOGY DEV/ADPT EQUIP) DIR ONE-ON-ONE CONT,EA 15 MINUTES 02/21/20 DoD SCREENING PAPANICOLAOU SMEAR; OBTAINING, PREPARING AND CONVEYANCE OF CERVICAL OR VAGINAL SMEAR TO LABORATORY 02/10/20 DoD APPLICATION OF A MODALITY TO 1 OR MORE AREAS; HOT OR COLD PACKS 01/17/20 DoD APPLICATION OF A MODALITY TO 1 OR MORE AREAS; HOT OR COLD PACKS 01/12/20 DoD SELF-CARE/HOME MANAGMENT TRAIN (EG,ACT OF DAILY LIVING (ADL) &COMPENSAT TRAIN,MEAL PREPARATION,SAFETY PROCS,AND INSTRUCT IN USE OF ASST TECHNOLOGY DEV/ADPT EQUIP) DIR ONE-ON-ONE CONT,EA 15 MINUTES 01/10/20 DoD APPLICATION OF A MODALITY TO 1 OR MORE AREAS; HOT OR COLD PACKS 01/07/20 DoD APPLICATION OF A MODALITY TO 1 OR MORE AREAS; HOT OR COLD PACKS 01/06/20 DoD APPLICATION OF A MODALITY TO 1 OR MORE AREAS; IONTOPHORESIS, EACH 15 MINUTES 01/05/20 DoD APPLICATION OF A MODALITY TO 1 OR MORE AREAS; HOT OR COLD PACKS 01/04/20 DoD SELF-CARE/HOME MANAGMENT TRAIN (EG,ACT OF DAILY LIVING (ADL) &COMPENSAT TRAIN,MEAL PREPARATION,SAFETY PROCS,AND INSTRUCT IN USE OF ASST TECHNOLOGY DEV/ADPT EQUIP) DIR ONE-ON-ONE CONT,EA 15 MINUTES 12/31/19 DoD BIOPSY OF SKIN, SUBCUTANEOUS TISSUE AND/OR MUCOUS MEMBRANE (INCLUDING SIMPLE CLOSURE), UNLESS OTHERWISE LISTED; SINGLE LESION 12/30/19 DoD ORTHOTIC(S) FITTING AND TRAINING, UPPER EXTREMITY(IES), LOWER EXTREMITY(IES), AND/OR TRUNK, EACH 15 MINUTES 12/29/19 DoD DETERMINATION OF REFRACTIVE STATE 12/27/19 DoD NONINVASIVE EAR OR PULSE OXIMETRY FOR OXYGEN SATURATION; SINGLE DETERMINATION 08/04/19 DoD TYMPANOMETRY (IMPEDANCE TESTING) 01/09/20 DoD APPLICATION OF A MODALITY TO 1 OR MORE AREAS; HOT OR COLD PACKS 03/13/20 DoD OCCUPATIONAL THERAPY RE-EVALUATION 03/02/20 DoD APPLICATION OF A MODALITY TO 1 OR MORE AREAS; HOT OR COLD PACKS 02/25/20 DoD APPLICATION OF A MODALITY TO 1 OR MORE AREAS; HOT OR COLD PACKS 02/21/20 DoD APPLICATION OF A MODALITY TO 1 OR MORE AREAS; HOT OR COLD PACKS 02/18/20 DoD APPLICATION OF A MODALITY TO 1 OR MORE AREAS; HOT OR COLD PACKS 02/14/20 DoD SELF-CARE/HOME MANAGMENT TRAIN (EG,ACT OF DAILY LIVING (ADL) &COMPENSAT TRAIN,MEAL PREPARATION,SAFETY PROCS,AND INSTRUCT IN USE OF ASST TECHNOLOGY DEV/ADPT EQUIP) DIR ONE-ON-ONE CONT,EA 15 MINUTES 02/11/20 DoD APPLICATION OF A MODALITY TO 1 OR MORE AREAS; ELECTRICAL STIMULATION (UNATTENDED) 02/07/20 DoD EXERCISE EQUIPMENT 01/27/20 DoD APPLICATION OF A MODALITY TO 1 OR MORE AREAS; IONTOPHORESIS, EACH 15 MINUTES 01/20/20 DoD APPLICATION OF A MODALITY TO 1 OR MORE AREAS; IONTOPHORESIS, EACH 15 MINUTES 01/18/[address] [facility] THERAPEUTIC PROCEDURE, 1 OR MORE AREAS, EACH 15 MINUTES; THERAPEUTIC EXERCISES TO DEVELOP STRENGTH AND ENDURANCE, RANGE OF MOTION AND FLEXIBILITY 01/14/[address] [facility] APPLICATION OF A MODALITY TO 1 OR MORE AREAS; IONTOPHORESIS, EACH 15 MINUTES 01/12/[address] [facility] OCCUPATIONAL THERAPY EVALUATION 01/10/[address] [facility] ELECTROCARDIOGRAM, ROUTINE ECG WITH AT LEAST 12 LEADS; TRACING ONLY, WITHOUT INTERPRETATION AND REPORT 09/04/[address] [facility] SCREENING PAPANICOLAOU SMEAR; OBTAINING, PREPARING AND CONVEYANCE OF CERVICAL OR VAGINAL SMEAR TO LABORATORY 09/04/[address] [facility] SCREENING PAPANICOLAOU SMEAR; OBTAINING, PREPARING AND CONVEYANCE OF CERVICAL OR VAGINAL SMEAR TO LABORATORY 02/22/[address] [facility] INSERTION OF INTERCOSTAL CATHETER FOR DRAINAGE 05/04/[address] [facility] THORACENTESIS 05/04/[address] [facility] DIAGNOSTIC ULTRASOUND OF ABDOMEN AND RETROPERITONEUM 05/04/[address] [facility] COMPUTERIZED AXIAL TOMOGRAPHY OF THORAX 05/04/[address] [facility] Acoustic Reflex Testing 01/09/[address] [facility] Audiologic Impedance Testing Audiologic Impedance Testing 13504 01/09/[address] [facility] Comprehensive Audiometry Comprehensive Audiometry 15650 01/09/20 08 LOPEZ JONES Modalities Heat Hot Packs Modalities Heat Hot Packs 76813 03/13/[address] [facility] Physical Therapy Mobilization Joint Physical Therapy Mobilization Joint 22829 03/13/[address] [facility] Physical Therapy: ___ Se ion Segments, 15 Minutes Each Physical Therapy: ___ Session Segments, 15 Minutes Each [id number] 03/13/[address] [facility] Modalities Electrical Stimulation Unattended Modalities Electrical Stimulation Unattended 66701 03/13/[address] [facility] Occupational Therapy Re-Evaluation Occupational Therapy Re-Evaluation 39034 03/02/[address] [facility] Modalities Electrical Stimulation Unattended Modalities Electrical Stimulation Unattended 84695 02/25/[address] [facility] Modalities Heat Hot Packs Modalities Heat Hot Packs 13504 02/25/[address] [facility] Physical Therapy Mobilization Joint Physical Therapy Mobilization Joint 28202 02/25/[address] [facility] Physical Therapy: ___ Se ion Segments, 15 Minutes Each Physical Therapy: ___ Session Segments, 15 Minutes Each 83493 02/25/[address] [facility] Physical Therapy Mobilization Joint Physical Therapy Mobilization Joint 58589 02/21/[address] [facility] Modalities Electrical Stimulation Unattended Modalities Electrical Stimulation Unattended 18544 02/21/[address] [facility] Modalities Heat Hot Packs Modalities Heat Hot Packs 26393 02/21/[address] [facility] Physical Therapy: ___ Se ion Segments, 15 Minutes Each Physical Therapy: ___ Session Segments, 15 Minutes Each 94462 02/21/[address] [facility] Physical Therapy Mobilization Joint Physical Therapy Mobilization Joint 41041 02/18/[address] [facility] Physical Therapy: ___ Se ion Segments, 15 Minutes Each Physical Therapy: ___ Session Segments, 15 Minutes Each [id number] 02/18/[address] [facility] Modalities Electrical Stimulation Unattended Modalities Electrical Stimulation Unattended 69732 02/18/[address] [facility] Modalities Heat Hot Packs Modalities Heat Hot Packs 59609 02/18/[address] [facility] Physical Therapy: ___ Se ion Segments, 15 Minutes Each Physical Therapy: ___ Session Segments, 15 Minutes Each 76825 02/14/[address] [facility] Physical Therapy Mobilization Joint Physical Therapy Mobilization Joint 71641 02/14/[address] [facility] Modalities Electrical Stimulation Unattended Modalities Electrical Stimulation Unattended 71241 02/14/[address] [facility] Modalities Heat Hot Packs Modalities Heat Hot Packs 48813 02/14/[address] [facility] Exercises A isted Exercises For ROM Exercises Assisted Exercises For ROM 71189 02/11/[address] [facility] Modalities Electrical Stimulation Unattended Modalities Electrical Stimulation Unattended 52409 02/11/[address] [facility] Training And Self-Care Skills Training And Self-Care Skills 57851 02/11/[address] [facility] Physical Therapy Mobilization Joint Physical Therapy Mobilization Joint 81394 02/11/20 06 SVETLANA MANZANO Modalities Electrical Stimulation Unattended Modalities Electrical Stimulation Unattended 00568 02/07/20 06 SVETLANA MANZANO Physical Therapy Mobilization Joint Physical Therapy Mobilization Joint 34384 02/07/20 06 SVETLANA MANZANO Training And Self-Care Skills Training And Self-Care Skills 40780 02/07/20 06 SVETLANA MANZANO Exercises A isted Exercises For ROM Exercises Assisted Exercises For ROM 60109 02/07/20 06 SVETLANA MANZANO Occupational Therapy Re-Evaluation Occupational Therapy Re-Evaluation 05025 01/27/20 06 DIANA BOSTON PT A e ment Kinetic Training PT Assessment Kinetic Training 28035 01/27/20 06 DIANA BOSTON Exercise equipment 01/27/20 06 DIANA BOSTON Modalities Iontophoresis Modalities Iontophoresis 14358 01/20/[address] [facility] Physical Therapy: ___ Se ion Segments, 15 Minutes Each Physical Therapy: ___ Session Segments, 15 Minutes Each 75811 01/20/20 06 GUANACO FUENTES Physical Therapy: ___ Se ion Segments, 15 Minutes Each Physical Therapy: ___ Session Segments, 15 Minutes Each 21215 01/18/20 06 GUANACO FUENTES Modalities Iontophoresis Modalities Iontophoresis 81232 01/18/20 06 GUANACO FUENTES Modalities Iontophoresis Modalities Iontophoresis 89863 01/14/[address] [facility] Physical Therapy: ___ Se ion Segments, 15 Minutes Each Physical Therapy: ___ Session Segments, 15 Minutes Each 00503 01/14/20 06 GUANACO FUENTES Modalities Iontophoresis Modalities Iontophoresis 11705 01/12/20 06 SVETLANA MANZANO Electrodes (e.g., apnea monitor), per pair 01/10/20 06 DIANA BOSTON Occupational Therapy Evaluation Occupational Therapy Evaluation 40255 01/10/20 06 DIANA BOSTON PT A e ment Kinetic Training PT Assessment Kinetic Training 25184 01/10/[address] [facility] Modalities Iontophoresis Modalities Iontophoresis 18952 01/10/[address] [facility] Pneumococcal Conjugate Vaccine, Polyvalent, IM Use Pneumococcal Conjugate Vaccine, Polyvalent, IM Use 03168 04/28/[address] [facility] Influenza Split Virus Vaccine Age 3+ Years Intramuscular 04/28/[address] [facility] Immunization Administration One Vaccine Immunization Administration One Vaccine 21047 02/28/[address] [facility] Td Vaccine Td Vaccine 66097 02/28/[address] [facility] Screening papanicolaou smear; obtaining, preparing and conveyance of cervical or vaginal smear to laboratory 09/04/[address] [facility] Social History Combined list of available smoking, tobacco, and other social history from Department of Defense and Veterans Affairs facilities. Social History Type Response Date Comment [facility] e This section is an empty social history section. [facility] Assessment and Plan Combined list of future care activities from Department of Defense and Veterans Affairs facilities (e.g., assessment and plan notes, appointments, orders, and referrals). Additional future care activities may be listed in the Plan of Care section. Result Assessment and Plan Date Source Assessment and Plan No data available for this section 11/06/2024 Ambulatory Pharmacy Functional Status Combined list of recent functional and cognitive assessments recorded at [facility] of Defense and [facility] ([place]VA Functional [place] Measurement (FIM) Scale: 1 = Total Assistance (Subject = 0% +), 2 = Maximal Assistance (Subject = 25% +), 3 = Moderate Assistance (Subject = 50% +), 4 = Minimal Assistance (Subject = 75% +), 5 = Supervision, 6 = Modified [place] (Device), 7 = Complete [place] (Timely, Safely). Assessment Date/Time Source Assessment Type Assessment Skill Assessment Score Assessment Details No data available for this section
== END 2024-11-06 14:23 | disposition home or self-care (01) ==
PROVIDERS: PCP Family Medicine; Visit Provider Family Medicine
DX: Z78.0 Asymptomatic menopausal state (principal); M81.0 Age-related osteoporosis without current pathological fracture; M85.852 Other specified disorders of bone density and structure, left thigh; M85.851 Other specified disorders of bone density and structure, right thigh
CPT/HCPCS: 77080

== ENCOUNTER 2025-02-26 08:16 | Outpatient (CLI) | payer MEDICARE, OTHER, SELFPAY ==
[2025-02-26 09:05] LABS: Hematocrit 38.2 % (37.0-47.0); Hemoglobin 12.2 g/dL (12.0-15.0); Immature Granulocyte Percent A 0.3 % (0-0.5); Lymphocytes Absolute Auto 1.15 K/mm3 (0.9-3.2); Mean Corpuscular HGB Conc 31.9 g/dl (32-36); Mean Corpuscular Hemoglobin 30.2 pg (26-34); Mean Corpuscular Volume 94.6 fl (80-100); Nucleated Red Blood Cells Absolute Auto 0.000 K/mm3 (0.0-0.012); Nucleated Red Blood Cells Perc 0.0 % (0.0-0.2); Platelet Count Result 174 k/mm3 (150-375); Red Blood Count 4.04 M/mm3 (4.2-5.4); White Blood Count 3.8 K/mm3 (4.5-10.0)
[2025-02-26 09:34] LABS: Alanine Aminotransferase 18 U/L (6-35); Albumin Level 4.6 g/dL (3.5-5.1); Alkaline Phosphatase 94 U/L (38-126); Anion Gap 8 mmol/L (4-12); Aspartate Amino Transferase 41 U/L (14-36); Bilirubin,Total 0.8 mg/dL (0.2-1.3); Blood Urea Nitrogen 16 mg/dL (7-17); Calcium 9.5 mg/dL (8.4-10.2); Carbon Dioxide 25 mmol/L (22-30); Chloride 106 mmol/L (98-107); Cholesterol 186 mg/dL (0-200); Estimated Glomerular Filt Rate > 60; Glucose 100 mg/dL (65-110); HDL Direct 62 mg/dL; Potassium 4.2 mmol/L (3.4-5.0); Sodium 139 mmol/L (137-145); Total Protein 8.6 g/dL (6.3-8.2); Triglycerides 80 mg/dL (<150)
[2025-02-26 10:06] LABS: Thyroid Stimulating Hormone 0.856 uIU/mL (0.465-4.680)
== END 2025-02-26 08:17 | disposition home or self-care (01) ==
PROVIDERS: PCP Family Medicine; Visit Provider Physician Assistant
DX: E78.2 Mixed hyperlipidemia (principal); I10 Essential (primary) hypertension; M81.0 Age-related osteoporosis without current pathological fracture
CPT/HCPCS: 36415; 80053; 80061; 82306; 84443; 85025